=== PATIENT | male | born 1945 | race Caucasian/White ===

== ENCOUNTER 2017-11-12 15:32 | Emergency (ER) | payer MEDICARE, MEDICAID ==
[2017-11-12 15:32] VITALS: BMI 21.6
[2017-11-12 15:35] VITALS: BP 150/79; PULSE 87; RESP 16; TEMP 98.3; O2SAT 99
--- NOTE | 2017-11-12 16:56 | ED PDOC ---
HPI: Abdomen Time Seen by Provider: 11/12/17 15:43 Chief Complaint (Nursing): Abdominal Pain Chief Complaint (Provider): Abdominal Pain History Per: Patient History/Exam Limitations: no limitations Onset/Duration Of Symptoms: Days (x1 week) Current Symptoms Are (Timing): Still Present Quality Of Discomfort: "Pain" Associated Symptoms: Constipation Additional Complaint(s): 72 year old male with a history of COPD, right lung mass, and constipation reports to the ED with intermittent lower abdominal pain onset 1 week. He reports the pain does not radiate. Patient takes medication for constipation. He denies vomiting, diarrhea, or any other medical complaints. PMD: Dr. Abraham Past Medical History Reviewed: Historical Data, Nursing Documentation, Vital Signs Vital Signs: Last Vital Signs Temp 98.3 F 11/12/17 15:34 Pulse 87 11/12/17 15:34 Resp 16 11/12/17 15:34 BP 150/79 11/12/17 15:34 Pulse Ox 99 11/12/17 20:54 - Medical History PMH: Arthritis, Benign Prostatic Hyperplasia, Cardia Arrhythmia, COPD, HTN, Osteoporosis Denies: Asthma, Chronic Kidney Disease Other PMH: right lung mass - Surgical History Surgical History: Appendectomy (1974), Endoscopy Other surgeries: thoracostomy - Family History Family History: States: Unknown Family Hx - Immunization History Hx Tetanus Toxoid Vaccination: Yes Hx Influenza Vaccination: Yes Hx Pneumococcal Vaccination: Yes - Home Medications Home Medications: Ambulatory Orders Medication Instructions Recorded Aspirin [Aspirin EC] 81 mg PO DAILY #0 01/28/14 Clopidogrel [Plavix] 75 mg PO DAILY #0 01/28/14 Multivit,Iron,Min 5/Folic Acid 40 tab PO DAILY 10/15/14 [Strovite Forte Caplet] amLODIPine [Norvasc] 5 mg PO DAILY 10/15/14 Ciprofloxacin [Cipro] 500 mg PO BID 5 Days tab 11/12/17 Docusate Sodium [Dulcolax Stool 100 mg PO DAILY #12 capsule 11/12/17 Softener] - Allergies Allergies/Adverse Reactions: Allergies Allergy/AdvReac Type Severity Reaction Status Date / Time No Known Allergies Allergy Verified 01/11/16 09:57 Review of Systems ROS Statement: Except As Marked, All Systems Reviewed And Found Negative Gastrointestinal: Positive for: Abdominal Pain, Constipation. Negative for: Vomiting, Diarrhea Physical Exam - Reviewed Nursing Documentation Reviewed: Yes Vital Signs Reviewed: Yes - Physical Exam Appears: Positive for: Non-toxic, No Acute Distress Skin: Positive for: Normal Color, Warm, Dry Eye Exam: Positive for: EOMI, Normal appearance, PERRL ENT: Positive for: Normal ENT Inspection Neck: Positive for: Normal, Painless ROM, Supple Cardiovascular/Chest: Positive for: Regular Rate, Rhythm. Negative for: Bradycardia Respiratory: Positive for: Normal Breath Sounds. Negative for: Respiratory Distress Gastrointestinal/Abdominal: Positive for: Tenderness (diffuse lower abdominal tenderness ) Back: Positive for: Normal Inspection Extremity: Positive for: Normal ROM (upper and lower extremities) Neurologic/Psych: Positive for: Alert, Oriented (x3). Negative for: Motor/ Sensory Deficits - Laboratory Results Result Diagrams: 11/12/17 16:21 11/12/17 16:21 - ECG O2 Sat by Pulse Oximetry: 99 (RA) Pulse Ox Interpretation: Normal Medical Decision Making Medical Decision Making: Time: 16:24 Initial Impression: Abdominal pain Differential diagnoses include but are not limited to: small bowel obstruction, UTI, consider appendicitis and diverticulitis Initial Plan: --CT abd & pelvis --EKG --CMP --Lipase --Urine dip --CBC with differentials --Omnipaque 50 ml PO Time: 19:00 --Patient endorsed to Dr. Thomason, pending labs and CT. Scribe Attestation: Documented by Lisa Villavicencio, acting as a scribe for Matthew Tolliver MD Provider Scribe Attestation: All medical record entries made by the Scribe were at my direction and personally dictated by me. I have reviewed the chart and agree that the record accurately reflects my personal performance of the history, physical exam, medical decision making, and the department course for this patient. I have also personally directed, reviewed, and agree with the discharge instructions and disposition. Disposition - Clinical Impression Clinical Impression: UTI (urinary tract infection), Constipation - Patient ED Disposition Is Patient to be Admitted: Transfer of Care Counseled Patient/Family Regarding: Studies Performed, Diagnosis, Need For Followup - Disposition Referrals: Rafa Abraham MD [Family Provider] - Disposition: Transfer of Care Disposition Time: 19:00 Condition: STABLE Prescriptions: Ciprofloxacin [Cipro] 500 mg PO BID 5 Days tab Docusate Sodium [Dulcolax Stool Softener] 100 mg PO DAILY #12 capsule Instructions: Urinary Tract Infections in Adults, Constipation in Adults Forms: [employer] (Macedonian) Print Language: TURKISH Patient Signed Over To: Huber Thomason
[2017-11-12] MEDS: Iohexol 240 (50 ml) PO ONE (17:00)
[2017-11-12] MEDS ORDERED: Iohexol 240 (50 ml) ONE (17:02)
[2017-11-12 17:03] LABS: BASO # 0.1 K/uL (0.0-0.2); BASO % 0.6 % (0.0-2.0); EOS # 0.6 K/uL (0.0-0.7); EOS % 7.1 % (0.0-4.0); LYMPH # 1.6 K/uL (1.0-4.3); LYMPH % 17.6 % (20.0-40.0); MEAN CELL VOLUME 89.7 fl (80.0-94.0); MEAN CORPUSCULAR HEMOGLOBIN 29.8 pg (27.0-31.0); MEAN CORPUSCULAR HGB CONC 33.2 g/dL (33.0-37.0); MEAN PLATELET VOLUME 7.9 fl (7.2-11.7); MONO # 0.7 K/uL (0.0-0.8); MONO % 7.3 % (0.0-10.0); NEUT # 6.1 K/uL (1.8-7.0); NEUT % 67.4 % (50.0-75.0); RBC 4.69 Mil/uL (4.40-5.90); RED CELL DISTRIBUTION WIDTH 14.3 % (11.5-14.5)
[2017-11-12 17:13] LABS: SQUAMOUS EPITHIAL 1 /hpf (0-5); URINE BILIRUBIN NEGATIVE (NEGATIVE); URINE BLOOD NEGATIVE (NEGATIVE); URINE CLARITY SLIGHTY-CLOUDY (Clear); URINE COLOR YELLOW (YELLOW); URINE GLUCOSE (UA) NEG (Normal); URINE LEUKOCYTE ESTERASE SMALL Leu/uL (Negative); URINE PROTEIN NEGATIVE (NEGATIVE); URINE UROBILINOGEN 0.2-1.0 mg/dL (0.2-1.0)
[2017-11-12 17:22] LABS: ALBUMIN 4.2 g/dL (3.5-5.0); ALT/SGPT 34 U/L (21-72); AST/SGOT 33 U/L (17-59); BLOOD UREA NITROGEN 13 mg/dl (9-20); GFR AFRICAN-AMERICAN > 60; GFR NON-AFRICAN AMERICAN > 60; LIPASE 82 U/L (23-300)
[2017-11-12] MEDS ORDERED: Sodium Chloride 0.9% 50 ML IV ONE (19:09)
[2017-11-12] MEDS ORDERED: Iohexol 300 100 ML IJ ONE (19:09)
--- NOTE | 2017-11-12 19:54 | ED PDOC ---
- Laboratory Results Result Diagrams: 11/12/17 16:21 11/12/17 16:21 - ECG O2 Sat by Pulse Oximetry: 99 (RA) Pulse Ox Interpretation: Normal Medical Decision Making Medical Decision Making: Time: 19:00 --Patient endorsed to this provider by Dr. Tolliver, pending labs and CT. Time: 20:24 Abdomen/Pelvis CT FINDINGS: Limitations: The examination is degraded by motion artifact. Lower thorax: Emphysema. Minimal atelectasis or parenchymal scarring in the imaged lungs. ABDOMEN: Liver: Several low-attenuation liver lesions, the largest of which measures 12 mm and is simple fluid attenuation. Gallbladder and bile ducts: No acute findings. No radiopaque gallstones. Pancreas: No acute findings. Spleen: No acute findings. Adrenals: Bilateral adrenal thickening with no definite discrete adrenal nodule. Kidneys and ureters: Bilateral low-attenuation renal lesions, the largest of which measures simple fluid attenuation. No urinary tract dilation or evident urinary tract calculi. Stomach and bowel: The stomach is moderately distended, predominantly filled with air. No evident acute abnormality of the small bowel. Moderate amount of stool present throughout the colon. No colonic wall thickening or pericolonic fat stranding. Appendix: Status post appendectomy. PELVIS: Bladder: No acute findings. Reproductive: Status post TURP. Enlarged prostate gland, measuring 5.1 x 4.4 cm in maximal axial dimensions. ABDOMEN and PELVIS: Intraperitoneal space: No free intraperitoneal fluid or air. Bones/joints: No evident acute fracture or suspicious osseous lesion. Soft tissues: No acute findings. 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 The infrarenal abdominal aorta and the common iliac arteries are diminutive in caliber, suggesting the occlusion is a chronic finding. There is distal reconstitution of both external iliac arteries distally via the inferior epigastric arteries. The common femoral arteries and the imaged portions of the superficial femoral and deep femoral arteries are opacified without significant stenosis. Lymph nodes: Several mildly enlarged right lower quadrant mesenteric lymph nodes. IMPRESSION: 1. 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 Diminutive caliber of the infrarenal abdominal aorta and common iliac arteries suggests the occlusion is a chronic finding. 2. Several mildly enlarged right lower quadrant mesenteric lymph nodes, nonspecific in nature. 3. A moderate amount of stool present throughout the colon is consistent with constipation. 4. Several small, low-attenuation hepatic and renal lesions are incompletely characterized but most likely to be benign cysts. Follow up per institution protocol. 5. Bilateral adrenal thickening with no definite discrete adrenal nodule. 6. Enlarged prostate gland. Status post TURP. 7. Additional non-acute findings as described above. 845PM Patient re-evaluated at bedside. Patient's family is aware of aortic occlusion , not new finding. Gave copy to daughter to show to Dr. Abraham. Advised medications for constipation and ABx for UTI. Patient well appearing, comfortable, ambulatory at discharge. Scribe Attestation: Documented by Lisa Villavicencio, acting as a scribe for Huber Thomason MD Provider Scribe Attestation: All medical record entries made by the Scribe were at my direction and personally dictated by me. I have reviewed the chart and agree that the record accurately reflects my personal performance of the history, physical exam, medical decision making, and the department course for this patient. I have also personally directed, reviewed, and agree with the discharge instructions and disposition. Disposition - Clinical Impression Clinical Impression: UTI (urinary tract infection), Constipation - POA Present On Arrival: None - Disposition Referrals: Rafa Abraham MD [Family Provider] - Disposition: Routine/Home Disposition Time: 20:53 Condition: STABLE Prescriptions: Ciprofloxacin [Cipro] 500 mg PO BID 5 Days tab Docusate Sodium [Dulcolax Stool Softener] 100 mg PO DAILY #12 capsule Instructions: Urinary Tract Infections in Adults, Constipation in Adults Forms: [employer] (Ivorian) Print Language: FRISIAN
--- NOTE | 2017-11-13 09:33 | CARD ---
APPROVED REPORT EKG Measurement Heart [id number] <Conclusion> Sinus rhythm with 2nd degree AV block (Mobitz I) Wenckebach Right bundle branch block Abnormal ECG
--- NOTE | 2017-11-13 12:51 | CT ---
PROCEDURE: CT Abdomen and Pelvis with contrast HISTORY: abdominal pain COMPARISON: Abdomen pelvis CT without contrast 12/22/2010. TECHNIQUE: Contrast dose: Omnipaque 300, 90 cc Radiation dose: Total exam DLP = 319.50 mGy-cm. This CT exam was performed using one or more of the following dose reduction techniques: Automated exposure control, adjustment of the mA and/or kV according to patient size, and/or use of iterative reconstruction technique. FINDINGS: LOWER THORAX: Subtle COPD changes are questioned at the bilateral lung bases. No acute findings. LIVER: Multiple lucencies are seen at the dome of the liver which are too small to characterize for the most part with a benign stable lucency in the right lobe superolateral to the albertina hepatis. Lucency at the left side of the dome is diminished in size Herrera daily 1 cm currently compared 1.4 cm in 2011. It measures 12 Hounsfield units compatible with a cyst. No intrahepatic biliary dilatation or solid mass appreciable grossly. GALLBLADDER AND BILE DUCTS: Unremarkable. PANCREAS: Unremarkable. No gross lesion or ductal dilatation. SPLEEN: Unremarkable. ADRENALS: Borderline bilateral adrenal hyperplasia. KIDNEYS AND URETERS: A benign cyst is identified in the upper pole left kidney 1.2 cm measuring 3 Hounsfield units. No obstructive uropathy bilaterally. There a few tiny lucencies identified bilaterally in the kidneys too small to characterize. No perinephric reaction bilaterally. VASCULATURE: Occluded abdominal aorta distal to the renal arteries with occlusion continuing into the bilateral common and external iliac arteries but the bilateral common femoral arteries are small as well as the visualized proximal superficial femoral arteries with minimal bilateral distal external iliac artery reconstitution ultimately by superior epigastric arteries. BOWEL: Moderately prominent fecal loading throughout the colon, borderline for constipation. Cecal diverticula remain nonacute and infrequent. No obstruction. No gross mural thickening. APPENDIX: Not identified. Consider possible prior appendectomy. No CT evidence to suggest appendicitis at this time. PERITONEUM: Unremarkable. No free fluid. No free air. LYMPH NODES: No significant lymphadenopathy grossly appreciable. BLADDER: Unremarkable. REPRODUCTIVE: Enlarged but smaller prostate gland in the interval status post TURP. BONES: No acute fracture. OTHER FINDINGS: None. IMPRESSION: 1. Occluded inferior abdominal without reconstitution. Occluded bilateral common and internal as well as external iliac arteries up to the distal most external iliac artery segments which are reconstituted by collaterals related to bilateral inferior epigastric arteries. The visualized common and superficial femoral arteries are opacified but small. 2. Borderline constipation. 3. Stable benign hepatic lucencies statistically likely reflecting cysts with 1 confirmed as a cyst near the dome, smaller in the interval. 4. Small lucency upper pole left kidney representing a cyst. 5. Borderline bilateral adrenal hyperplasia. 6. Enlarged prostate gland status post TURP. Concordant preliminary report from [facility], 11/12/2017.
== END 2017-11-12 22:00 | disposition home or self-care (01) ==
LOC: H.ER 15:32
DX: N39.0 Urinary tract infection, site not specified (principal); K59.00 Constipation, unspecified; J44.9 Chronic obstructive pulmonary disease, unspecified; R91.8 Other nonspecific abnormal finding of lung field; M81.0 Age-related osteoporosis without current pathological fracture; N40.0 Benign prostatic hyperplasia without lower urinary tract symptoms; I10 Essential (primary) hypertension; Z79.82 Long term (current) use of aspirin; Z90.79 Acquired absence of other genital organ(s)
CPT/HCPCS: 74177; 80053; 81003; 83690; 85025; 93005; 99283; Q9966; Q9967